=== PATIENT | male | born 2005 | race Two or more races ===

== ENCOUNTER 2025-02-18 12:32 | Emergency (ER) | payer OTHER ==
[~2025-02-18] VITALS: Ht 180.3 cm; Wt 103.9 kg
[2025-02-18 13:33] LABS: PLATELET COUNT (AUTO) 295 K/uL (150-450); RED BLOOD CELL COUNT(AUTO) 5.01 MIL/uL (4.5-6.0); RED CELL DISTRIBUTION WIDTH 13.6 % (11.5-15.0); WHITE BLOOD COUNT (AUTO) 12.8 K/uL (4.3-11.0)
[2025-02-18 13:38] LABS: CALCIUM, SERUM 9.5 mg/dL (8.5-10.1); CREATININE 1.2 mg/dL (0.6-1.3); SODIUM SERUM 137 mmol/L (136-145); UREA NITROGEN, BLOOD 10 mg/dL (7-18)
[2025-02-18 13:44] LABS: ASPARTATE AMINOTRANSFERASE 25 U/L (15-37); TOTAL PROTEIN, SERUM 7.9 g/dL (6.4-8.2)
[2025-02-18] MEDS ORDERED: IV NS 0.9% 250 ML IV ONE (14:53)
[2025-02-18] MEDS ORDERED: IOHEXOL-350 100 ML VIAL IV ONE (14:53)
[2025-02-18 17:34] VITALS: BP 145/80; TEMP 98.2; O2SAT 99
== END 2025-02-18 17:35 | disposition home or self-care (01) ==
LOC: ER 12:45
DX: R07.9 Chest pain, unspecified (principal); R42 Dizziness and giddiness; R55 Syncope and collapse; R61 Generalized hyperhidrosis; Z88.0 Allergy status to penicillin; Z88.1 Allergy status to other antibiotic agents
CPT/HCPCS: 99285; 71275; 71045; 93005; 85025; 80048; 80076; 36415; 84484 ×2; J7050; Q9967